=== PATIENT | female | born 1960 | race Caucasian/White ===

== ENCOUNTER 2019-02-02 06:03 | Day surgery (SDC) | payer BC ==
[~2019-02-02] VITALS: Ht 165.1 cm; Wt 48.9 kg
[2019-02-02] VITALS (8 sets, daily range): BP systolic 120–165; BP diastolic 55–97; PULSE 45–59; TEMP 97.8–98
[2019-02-02] MEDS ORDERED: PROBIOTIC FORMU1 CAP PO (07:04)
--- NOTE | 2019-02-02 07:05 | NUR ---
PATIENT NOW STATED THE NAUSEA IS BETTER AND SHE NO LONGER IS SHIVERING.
--- NOTE | 2019-02-02 09:00 | NUR ---
Patient arrives to [facility] via cart, accompanied by Endo RN Bridget. She is alert and oriented. She ambulates to chair in room with standby assist and steady gait. Monitoring applied - BP done manually as monitor would not read - VSS and WNL on room air. She denies any pain or nausea at this time. Bedside report received. Patient is NPO for barium enema. Daughter is at the bedside. Call light usage taught and within reach.
--- NOTE | 2019-02-02 09:15 | NUR ---
VSS and WNL on room air. Patient has mild nausea, which she had pre-procedure and received Zofran for. She is given an emesis bag. She is given warm blankets and a cool washcloth. Will continue to monitor.
--- NOTE | 2019-02-02 10:55 | NUR ---
Patient to radiology with radiology staff via wheelchair.
--- NOTE | 2019-02-02 11:23 | NUR ---
Per Dr. Tipton, patient may eat and discharge home when she returns from radiology.
--- NOTE | 2019-02-02 12:00 | NUR ---
Patient returns from radiology. She is having some cramping pain from the procedure. She denies any need for intervention. Her BP is elevated. Will re-check BP prior to dismissal. Given water to drink. She does not want anything to eat. Will continue to monitor.
--- NOTE | 2019-02-02 12:15 | NUR ---
Patient states cramping is improved. VSS on room air.
--- NOTE | 2019-02-02 12:26 | NUR ---
Patient changes to clothing. PIV removed with catheter intact and hemostasis achieved. Escorted to exit via wheelchair. Discharged to home with ride in private vehicle at 1226.
== END 2019-02-02 12:26 | disposition home or self-care (01) ==
LOC: SDCO 06:03
DX: Z12.11 Encounter for screening for malignant neoplasm of colon (principal); D12.8 Benign neoplasm of rectum; J44.9 Chronic obstructive pulmonary disease, unspecified; Z90.710 Acquired absence of both cervix and uterus; Z88.1 Allergy status to other antibiotic agents; F17.210 Nicotine dependence, cigarettes, uncomplicated
CPT/HCPCS: J2405; J2704; J7030